=== PATIENT | female | born 1950 | race Caucasian/White ===

== ENCOUNTER 2017-05-15 15:49 | Emergency (ER) | payer MEDICARE, OTHER ==
[~2017-05-15] VITALS: Ht 157.5 cm; Wt 50.2 kg
[~2017-05-15 15:49] MED LIST: CA C1TAB60 PO; FAMO20TA37 PO; VALA500T4 PO
[2017-05-15 15:51] VITALS: BP 174/95
[2017-05-15] MEDS ORDERED: OMEP10CA4 PO (16:10)
[2017-05-15] MEDS ORDERED: RABE20TA18 PO (16:10)
[2017-05-15] MEDS ORDERED: MULT1CAP19 PO (16:11)
[2017-05-15] MEDS ORDERED: CHOL400C PO (16:11)
[2017-05-15 16:48] LABS: MICROSCOPIC NOT IND
[2017-05-15 16:53] LABS: CULTURE INDICATED? NO
== END 2017-05-15 17:36 | disposition home or self-care (01) ==
LOC: ED 16:00
DX: S29.012A Strain of muscle and tendon of back wall of thorax, initial encounter (principal); M51.34 Other intervertebral disc degeneration, thoracic region; E11.9 Type 2 diabetes mellitus without complications; X58.XXXA Exposure to other specified factors, initial encounter; Y93.89 Activity, other specified; Y92.89 Other specified places as the place of occurrence of the external cause; Y99.8 Other external cause status
CPT/HCPCS: 72072; 81003; 99285

== ENCOUNTER → 2017-06-16 | Outpatient (CLI) | payer MEDICARE, OTHER ==
[~2017-06-16] MED LIST changes: +CHOL400C PO; +MULT1CAP19 PO; +OMEP10CA4 PO; +RABE20TA18 PO
== END | disposition home or self-care (01) ==
LOC: CFH 13:34 → EDSTATUS 14:00
PROVIDERS: ATTEND Internal Medicine Cardiovascular Disease
DX: I08.1 Rheumatic disorders of both mitral and tricuspid valves (principal); Z85.820 Personal history of malignant melanoma of skin; Z87.891 Personal history of nicotine dependence
CPT/HCPCS: 93306

== ENCOUNTER → 2018-08-29 | Outpatient (CLI) | payer MEDICARE, OTHER ==
[~2018-08-29] MED LIST changes: +ACYC15OI6 TP; +CARB1DRO5 EACHEYE; +CHOL10003 PO; +LISI5TAB7 PO; +PSYL1POW PO; +RANI150T4 PO; +TRIA15OI10 NAS
[2018-08-29 15:29] LABS: ALBUMIN 3.8 g/dL (3.4-5.0); ANION GAP 9 mmol/L (5-15); CALCIUM 8.7 mg/dL (8.5-10.1); CHLORIDE 94 mmol/L (98-107)
[2018-08-29 15:33] LABS: ALANINE AMINOTRANSFERASE 32 U/L (12-78); ALKALINE PHOSPHATASE 65 U/L (45-117); BILIRUBIN,TOTAL 0.5 mg/dL (0.2-1.0); TOTAL PROTEIN 6.6 g/dL (6.4-8.2)
== END | disposition home or self-care (01) ==
LOC: STAR 14:02
PROVIDERS: ATTEND Surgery
DX: Z01.818 Encounter for other preprocedural examination (principal); K40.90 Unilateral inguinal hernia, without obstruction or gangrene, not specified as recurrent
CPT/HCPCS: 36415; 80053; 93005

== ENCOUNTER 2018-09-07 05:25 | Day surgery (SDC) | payer MEDICARE, OTHER ==
[~2018-09-07] VITALS: Ht 157.5 cm; Wt 46.3 kg
[2018-09-07] MEDS ORDERED: LACTATED RINGERS 1,000 ML IV SCH (06:24)
[2018-09-07 06:25] VITALS: BP 165/85
[2018-09-07] MEDS ORDERED: LORazepam 2 MG/ML, 1ML IVPush ONE (06:30)
[2018-09-07] MEDS ORDERED: GABAPENTIN 300 MG CAPSULE PO ONE (06:30)
[2018-09-07] MEDS ORDERED: TAMSULOSIN 0.4 MG CAP.ER.24H PO ONE (06:30)
[2018-09-07] MEDS ORDERED: FAMOTIDINE 20 MG/2 ML IVPush ONE (06:30)
[2018-09-07] MEDS ORDERED: METOCLOPRAMIDE 5 MG/ML, 2ML IVPush ONE (06:30)
[2018-09-07] MEDS ORDERED: ACETAMINOPHEN 500 MG TABLET PO ONE (06:30)
[2018-09-07] MEDS ORDERED: BUPIVACAINE/PF 0.5% ONE (06:38)
[2018-09-07] MEDS ORDERED: EPINEPHRINE 1 MG/ML, 1ML ONE (06:38)
[2018-09-07] MEDS ORDERED: LORazepam 2 MG/ML, 1ML ONE (06:39)
[2018-09-07] MEDS ORDERED: MIDAZOLAM 1 MG/ML, 2ML ONE (07:15)
[2018-09-07] MEDS ORDERED: FENTANYL PF 250 MCG/5ML ONE (07:16)
[2018-09-07] MEDS ORDERED: PROPOFOL 10 MG/ML, 20ML ONE (08:25)
[2018-09-07] MEDS ORDERED: ONDANSETRON 2MG/ML, 2ML ONE (08:25)
[2018-09-07] MEDS ORDERED: CEFAZOLIN 1,000 MG ONE (08:25)
[2018-09-07] MEDS ORDERED: ROCURONIUM 10MG/ML,5ML ONE (08:25)
[2018-09-07] MEDS ORDERED: NEOSTIGMINE 1 MG/ML, 10ML ONE (08:25)
[2018-09-07] MEDS ORDERED: DEXAMETHASONE 4 MG/ML, 1ML ONE (08:25)
[2018-09-07] MEDS ORDERED: SUCCINYLCHOLINE 20 MG/ML, 10ML ONE (08:25)
[2018-09-07] MEDS ORDERED: GLYCOPYRROLATE 0.2MG/1ML, 5ML ONE (08:25)
[2018-09-07] MEDS ORDERED: KETOROLAC 30 MG/1 ML IVPush PRN (08:30)
[2018-09-07] MEDS ORDERED: OXYcodone 5 MG/5 ML ORAL.SOL UDC PO PRN (08:30)
[2018-09-07] MEDS ORDERED: hydrALAzine 20 MG/ML, 1ML IV PRN (08:30)
[2018-09-07] MEDS ORDERED: HYDROcodone/APAP 5/325 TABLET PO PRN (08:30)
[2018-09-07] MEDS ORDERED: MEPERIDINE/PF 25MG/0.5ML IVPush PRN (08:30)
[2018-09-07] MEDS ORDERED: ACETAMINOPHEN 325 MG TABLET PO PRN (08:30)
[2018-09-07] MEDS ORDERED: LABETALOL 5MG/ML, 20ML IV PRN (08:30)
[2018-09-07] MEDS ORDERED: FENTANYL PF 100 MCG/2ML IV PRN (08:30)
[2018-09-07] MEDS ORDERED: PROMETHAZINE 25 MG/ML, 1ML IV PRN (08:30)
[2018-09-07] MEDS ORDERED: KETOROLAC 30 MG/1 ML IV PRN (08:30)
[2018-09-07] MEDS ORDERED: ALBUTEROL SULFATE 2.5 MG/3 ML NPPB PRN (08:30)
[2018-09-07] MEDS ORDERED: morphine SULFATE 10 MG/ML, 1ML IVPush PRN (08:30)
[2018-09-07] MEDS ORDERED: HYDROmorphone 2 MG/ML, 1ML IVPush PRN (08:30)
[2018-09-07] MEDS ORDERED: DIAZEPAM 5 MG/ML, 2ML IVPush PRN (08:30)
== END 2018-09-07 13:20 | disposition home or self-care (01) ==
LOC: OUT 05:25
PROVIDERS: ATTEND Surgery
DX: K40.90 Unilateral inguinal hernia, without obstruction or gangrene, not specified as recurrent (principal); I10 Essential (primary) hypertension; K21.9 Gastro-esophageal reflux disease without esophagitis; Z90.49 Acquired absence of other specified parts of digestive tract; Z90.710 Acquired absence of both cervix and uterus; Z98.890 Other specified postprocedural states
CPT/HCPCS: 49650; C1781; J0171; J0330; J0690; J1100; J2060; J2250; J2405; J2704; J2710; J2765; J3010; J3490; J7120

== ENCOUNTER 2018-11-08 12:34 | Outpatient (CLI) | payer MEDICARE, OTHER ==
[~2018-11-08 12:34] MED LIST changes: +ACYC15OI17 TP; -ACYC15OI6 TP; -OMEP10CA4 PO; +OMEP10CA5 PO
== END 2018-11-08 23:59 | disposition home or self-care (01) ==
LOC: CFH 12:34
PROVIDERS: ATTEND Internal Medicine Cardiovascular Disease
DX: R07.89 Other chest pain (principal)
CPT/HCPCS: 78452; 93017; A9502

== ENCOUNTER 2019-02-28 13:30 | Outpatient (CLI) | payer MEDICARE, OTHER | END 2019-02-28 23:59 | disposition home or self-care (01) | LOC: CVU 13:30 | PROVIDERS: ATTEND Internal Medicine Cardiovascular Disease | DX: I65.21 Occlusion and stenosis of right carotid artery (principal); I10 Essential (primary) hypertension; Z87.891 Personal history of nicotine dependence | CPT/HCPCS: 93880 ==

== ENCOUNTER 2019-06-24 19:37 | Emergency (ER) | payer MEDICARE, OTHER ==
[~2019-06-24] VITALS: Ht 157.5 cm; Wt 47.4 kg
[2019-06-24] MEDS ORDERED: LORazepam 2 MG/ML, 1ML ONE (20:27)
[2019-06-24] MEDS ORDERED: LORazepam 2 MG/ML, 1ML IVPush ONE (20:30)
[2019-06-24 20:34] LABS: BASOPHILS # (AUTO) 0.01 x10^3/uL (0-0.1); BASOPHILS % (AUTO) 0 % (0-1); EOSINOPHILS # (AUTO) 0.01 x10^3/uL (0-0.4); EOSINOPHILS % (AUTO) 0 % (1-7); LYMPHOCYTES # (AUTO) 1.53 x10^3/uL (1-3.4); LYMPHOCYTES % (AUTO) 20 % (22-44); MD NO; MEAN CORPUSCULAR HEMOGLOBIN 32.7 pg (27.0-34.8); MEAN CORPUSCULAR HGB CONC 33.9 g/dL (32.4-35.8); MEAN CORPUSCULAR VOLUME 96.4 fL (80-100); MEAN PLATELET VOLUME 7.1 fL (7.4-10.4); MONOCYTES # (AUTO) 0.48 x10^3/uL (0.2-0.8); MONOCYTES % (AUTO) 6 % (2-9); NEUTROPHILS # (AUTO) 5.61 x10^3/uL (1.8-6.8); NEUTROPHILS % (AUTO) 73 % (42-75); PLATELET COUNT 289 x10^3/uL (130-400); RED BLOOD COUNT 3.94 x10^6/uL (3.82-5.3)
[2019-06-24 20:41] LABS: ALANINE AMINOTRANSFERASE 46 U/L (12-78); ALBUMIN 3.9 g/dL (3.4-5.0); ANION GAP 14 mmol/L (5-15); CALCIUM 8.5 mg/dL (8.5-10.1); CHLORIDE 89 mmol/L (98-107); CREATININE 0.69 mg/dL (0.55-1.02)
[2019-06-24 20:46] LABS: ALKALINE PHOSPHATASE 68 U/L (45-117); BILIRUBIN,TOTAL 1.4 mg/dL (0.2-1.0); TOTAL PROTEIN 6.6 g/dL (6.4-8.2); TROPONIN I < 0.015 ng/mL (0.000-0.045)
--- NOTE | 2019-06-24 21:00 | NUR ---
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 NAD NOTED, PT REMAINS ANXIOUS.
[2019-06-24] MEDS ORDERED: SODIUM CHLORIDE 0.9% 1,000 ML IV ONE (21:05)
[2019-06-24] MEDS ORDERED: SODIUM CHLORIDE FLUSH 10ML SYR IVF ONE (21:30)
[2019-06-24 21:31] LABS: MICROSCOPIC NOT IND
[2019-06-24 21:40] LABS: CULTURE INDICATED? NO
--- NOTE | 2019-06-24 21:58 | NUR ---
PT RECLINED BACK IN BED, HOB TO LEVEL OF COMFORT. NAD NOTED AT THIS TIME. AT BEDSIDE. IVF INFUSING PER EMAR. REPORT TO FILIPPO LAMAR.
--- NOTE | 2019-06-24 22:10 | NUR ---
REPORT FROM VANE BARKLEY. '' 'RN IN TO INTRODUCE SELF TO PATIENT.
--- NOTE | 2019-06-24 22:34 | NUR ---
AD[place] PAC REQUESTING PATIENT BE AMBULATED TO SEE IF SHE IS ABLE TO BE DISCHARGED HOME.' ' RN IN TO AMBULATE PATIENT.
--- NOTE | 2019-06-24 23:10 | NUR ---
PT PREPPED FOR AMBULATION TEST. PRIOR TO WALK, PT USES BSC, CLEAR YELLOW URINE. IV NOT RUNNING UPON RN ARRIVAL IN ROOM. TUBING KINKED. RN ASSESS AREA, CLEANS ALL HUBS, FLUSHES PIV AND STARTS IV AGAIN. IV RUNNING WITHOUT DIFF. ' ' PT AMBULATED IN [place] WITHOUT DIFF. REMAINS IN ROOM. ' ' PAC AT BEDSIDE TO DISCUSS POC WITH PATIENT.' ' PT REMAINS VERY ANXIOUS.
[2019-06-24 23:28] VITALS: BP 130/88
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
== END 2019-06-25 00:06 | disposition home or self-care (01) ==
LOC: ED 21:38
DX: S09.90XA Unspecified injury of head, initial encounter (principal); R42 Dizziness and giddiness; R55 Syncope and collapse; E87.1 Hypo-osmolality and hyponatremia; E11.9 Type 2 diabetes mellitus without complications; I25.2 Old myocardial infarction; M54.2 Cervicalgia; Z87.891 Personal history of nicotine dependence; X58.XXXA Exposure to other specified factors, initial encounter; Y93.89 Activity, other specified; Y92.89 Other specified places as the place of occurrence of the external cause; Y99.8 Other external cause status
CPT/HCPCS: 36415; 70450; 71045; 72125; 80053; 81003; 84484; 85025; 93005; 99285; J7030; 96360